=== PATIENT | male | born 1990 | race Caucasian/White ===

== ENCOUNTER → 2020-11-23 | Outpatient (CLI) | payer OTHER ==
--- NOTE | 2020-11-23 14:55 | REP ---
INDICATION: LBP. COMPARISON: None. TECHNIQUE: Multiple sequences obtained in the sagittal and axial planes. FINDINGS: Vertebral bodies are normal in height and well aligned with normal lumbar lordosis. No abnormal bone marrow signal is seen. Conus is unremarkable. There is loss of water signal and disc degeneration L4-5 and L5-S1 with very mild disc space narrowing at those levels. At the L1-2, L2-3 and L3-4 levels there is no significant disc bulging or herniation. There is no spinal stenosis or neural foraminal narrowing. There is a 1 cm cyst at the posterior margin of the facet joint on the right at the L3-4 level. At L4-5 there is a large diffuse posterior herniation of disc material causing severe spinal stenosis and compression of the thecal sac. There is significant crowding of cauda equina and nerve roots at this level. Mild facet hypertrophy is seen at this level. Neural foramina appear slightly narrowed. At L5-S1 there is moderate left paracentral and foraminal broad based disc protrusion with a suspected tear of the annulus. There is not significant spinal canal narrowing. There is moderate left lateral recess and foraminal stenosis at this level. There are facet hypertrophic changes at this level. IMPRESSION: At L4-5 there is a large diffuse posterior herniation of disc material causing severe spinal stenosis and compression of the thecal sac. There is significant crowding of cauda equina and nerve roots at this level. Mild facet hypertrophy is seen at this level. Neural foramina appear slightly narrowed. At L5-S1 there is moderate left paracentral and foraminal broad based disc protrusion with a suspected tear of the annulus. There is not significant spinal canal narrowing. There is moderate left lateral recess and foraminal stenosis at this level. There are facet hypertrophic changes at this level. A preliminary report was provided for the referring clinician by virtual Radiology at the time of the exam. <Electronically signed by Barney Constantino > 11/23/20 [id number]
== END ==
LOC: M RAD 06:20
PROVIDERS: ATTEND Orthopaedic Surgery
DX: M54.5 Low back pain (principal)

== ENCOUNTER → 2021-01-03 | Outpatient (CLI) | payer OTHER ==
--- NOTE | 2021-01-03 13:38 | REP ---
INDICATION: PRE OP TESTING COMPARISON: None. TECHNIQUE: PA and lateral. FINDINGS: The mediastinum and cardiac silhouette are normal. The lung ness are clear and without acute consolidation, effusion, or pneumothorax. The skeletal structures are intact and normal. IMPRESSION: No acute cardiopulmonary process. <Electronically signed by Devin Elias > 01/03/21 [id number]
== END ==
LOC: M WUC 10:46
PROVIDERS: ATTEND Physician Assistant
DX: Z01.818 Encounter for other preprocedural examination (principal)

== ENCOUNTER → 2021-01-12 | Outpatient (CLI) | payer OTHER | LOC: M LABSMTC 10:49 | PROVIDERS: ATTEND Orthopaedic Surgery | DX: Z01.812 Encounter for preprocedural laboratory examination (principal); Z11.52 Encounter for screening for COVID-19 ==